=== PATIENT | female | born 1980 | race Caucasian/White ===

== ENCOUNTER 2018-05-05 17:13 | Observation (INO) | payer BC ==
[2018-05-05 18:01] LABS: Absolute Lymphocytes (CBC) 2.1 K/uL (0.7-4.9); Absolute Monocytes 0.5 K/uL (0.1-1.3); Absolute Neutrophil 6.9 K/uL (1.8-8.0); Basophils % 0.6 % (0-1.3); Eosinophils % 1.6 % (0-4.4); Hematocrit 41.8 % (36.0-45.0); Lymphocytes % 21.9 % (15.3-44.8); MPV 8.6 fL (7.6-11.3); Monocytes % 4.8 % (3.3-12.3); RBC Red Blood Cell Count 4.37 M/uL (3.86-4.86)
[2018-05-05] MEDS ORDERED: NA CHLORIDE 0.9% 2,000 ML ONE (18:07)
[2018-05-05] MEDS ORDERED: FENTANYL CITR 100 MCG/2 ML ONE ×3 (18:07→22:34)
[2018-05-05 18:13] LABS: Protime INR 1.02
[2018-05-05 18:21] LABS: Albumin 3.8 g/dL (3.4-5.0); Bilirubin Direct 0.3 mg/dL (0-0.2); Bilirubin Total 0.5 mg/dL (0.2-1.0); Potassium 3.5 mmol/L (3.5-5.1); Protein, Total 7.5 g/dL (6.4-8.2)
[2018-05-05 18:24] LABS: Magnesium 2.3 mg/dL (1.8-2.4); NT PRO-BNP 32 pg/mL (<125); Troponin (Emerg Dept Use Only) < 0.02 ng/mL (0.0-0.045)
--- NOTE | 2018-05-05 18:36 | EKG ---
Test Date: 2018-05-05 Test Time: 17:52:58 Pricer Bagger: NOLBERTO MEASUREMENT RESULTS: Intervals: Rate: 64 NE: 174 QRSD: 74 QT: 402 QTc: 414 [place]: P: 47 NE: 174 QRS: 67 T: 41 INTERPRETIVE STATEMENTS: Normal sinus rhythm Normal ECG No previous ECG available for comparison Electronically Signed On 05-05-18 18:35:15 CARE COORDINATOR by Steven Whalen
--- NOTE | 2018-05-05 18:55 | RAD REPORT ---
EXAM DESCRIPTION: RAD - Chest Single View - 05/05/2018 6:05 pm CLINICAL HISTORY: Chest pain, abdominal pain COMPARISON: None. TECHNIQUE: AP portable chest image was obtained 1800 hours . FINDINGS: Lungs are clear. Heart and vasculature are normal. No measurable pleural effusion and no p neumothorax. No acute bony abnormality seen. No acute aortic findings suspected. IMPRESSION: No acute cardiopulmonary process.
[2018-05-05 20:32] LABS: Urine Specific Gravity >1.030 (1.005-1.030)
[2018-05-05 20:32] LABS: Urine Blood NEGATIVE (NEG); Urine Glucose NEGATIVE (NEG); Urine Protein NEGATIVE (NEG); Urine Specific Gravity >1.030 (1.005-1.030); Urine pH 5.5 (5.0-7.0)
--- NOTE | 2018-05-05 20:44 | RAD REPORT ---
EXAM DESCRIPTION: CT - Abdomen Pelvis W Contrast - 05/05/2018 8:20 pm CLINICAL HISTORY: Abdominal pain, epigastric pain COMPARISON: None. TECHNIQUE: Biphasic, helical CT imaging of the abdomen and pelvis was performed following 100 ml non -ionic IV contrast. Oral contrast was given. All CT scans are performed using dose optimization technique as appropriate and may include automated exposure control or mA/KV adjustment according to patient size. FINDINGS: No suspicious findings in the lung bases. The liver, spleen, and pancreas show no suspicious findings. Liver attenuation is borderline fatty in filtrated. Well filled gallbladder shows wall thickening/ edema. Gallstones can be occult. Biliary tr ee is mildly prominent. Duct stones can be occult. Symmetric renal function is seen with no hydronephrosis or suspicious renal mass. No pyelonephritis o r acute parenchymal process. No bladder abnormalities. No adrenal abnormalities. No dilated bowel loops or bowel wall thickening. Uterus and ovaries show no suspicious findings. A 19 millimeter right ovarian cyst is present. No free air, free fluid or inflammatory stranding. No her shane, mass or bulky lymphadenopathy. No suspicious bony findings. IMPRESSION: Well filled gallbladder shows wall thickening/edema. Gallstones can be occult on CT imag ing. Biliary tree is prominent. Duct stones can be occult. No pancreatic or duodenal mass. Correlation is needed with any acute cholecystitis findings. No acute , feed weigher or GI finding otherwise noted.
--- NOTE | 2018-05-05 20:48 | EDPHYS ---
Physician Documentation [facility] Name: Ernestina Art Age: 38 yrs Sex: Female : 1980 Arrival Date: 05/05/2018 Time: 17:13 Bed 7 Private MD: out of town, doctor ED Physician Chele Dominguez HPI: 05/05 18:34 This 38 yrs old Female presents to ER via Ambulatory with complaints of snw Abdominal Pain. 18:34 The patient presents with abdominal pain. Onset: The symptoms/episode began/occurred 3 snw week(s) ago, and became worse today. The symptoms radiate to chest through to back. Associated signs and symptoms: Pertinent positives: nausea. The symptoms are described as stabbing. Modifying factors: The symptoms are alleviated by nothing, the symptoms are aggravated by food. Severity of pain: At its worst the pain was moderate severe. The patient has experienced a previous episode. The patient has not recently seen a physician. gastric sleeve in [facility] in October. 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 - Ebola Screening: : No symptoms or risks identified at this time. - Social history:: Smoking status: Patient/guardian denies using tobacco. ROS: 18:34 Constitutional: Negative for fever, chills, and weight loss, Eyes: Negative for injury, snw pain, redness, and discharge, ENT: Negative for injury, pain, and discharge, Neck: Negative for injury, pain, and swelling, Cardiovascular: Negative for chest pain, palpitations, and edema, Respiratory: Negative for shortness of breath, cough, wheezing, and pleuritic chest pain, Back: Negative for injury and pain, : Negative for injury, bleeding, discharge, and swelling, MS/Extremity: Negative for injury and deformity, Skin: Negative for injury, rash, and discoloration, Neuro: Negative for headache, weakness, numbness, tingling, and seizure. 18:34 Abdomen/GI: Positive for abdominal pain, nausea. Exam: 18:33 Constitutional: This is a well developed, well nourished patient who is awake, alert, snw and in no acute distress. Head/Face: Normocephalic, atraumatic. Eyes: Pupils equal round and reactive to light, extra-ocular motions intact. Lids and lashes normal. Conjunctiva and sclera are non-icteric and not injected. Cornea within normal limits. Periorbital areas with no swelling, redness, or edema. ENT: Nares patent. No nasal discharge, no septal abnormalities noted. Tympanic membranes are normal and external auditory canals are clear. Oropharynx with no redness, swelling, or masses, exudates, or evidence of obstruction, uvula midline. Mucous membranes moist. Neck: Trachea midline, no thyromegaly or masses palpated, and no cervical lymphadenopathy. Supple, full range of motion without nuchal rigidity, or vertebral point tenderness. No Meningismus. Chest/axilla: Normal chest wall appearance and motion. Nontender with no deformity. No lesions are appreciated. 18:33 Respiratory: Lungs have equal breath sounds bilaterally, clear to auscultation and percussion. No rales, rhonchi or wheezes noted. No increased work of breathing, no retractions or nasal flaring. Abdomen/GI: Soft, mildly tender (upper quads), with normal bowel sounds. No distension or tympany. No guarding or rebound. Back: No spinal tenderness. No costovertebral tenderness. Full range of motion. Skin: Warm, dry with normal turgor. Normal color with no rashes, no lesions, and no evidence of cellulitis. MS/ Extremity: Pulses equal, no cyanosis. Neurovascular intact. Full, normal range of motion. Neuro: Awake and alert, GCS 15, oriented to person, place, time, and situation. Cranial nerves II-XII grossly intact. Motor strength 5/5 in all extremities. Sensory grossly intact. Cerebellar exam normal. Normal gait. 18:33 Cardiovascular: Rate: normal, Rhythm: regular, Pulses: no pulse deficits are appreciated, Heart sounds: normal, HTN with pain, mildly splinted respirations. Vital Signs: 17:27 BP 151 / 93; Pulse 76; Resp 20 S; Temp 98.2(TE); Pulse Ox 100% on R/A; Weight 71.21 kg aa5 (R); Height 5 ft. 2 in. (157.48 cm) (R); Pain 10/10; 18:49 BP 123 / 77; Pulse 51; Resp 16; Pulse Ox 100% ; bp 20:34 BP 125 / 71; Pulse 72; Resp 14; Pulse Ox 98% on R/A; Pain 2/10; ed1 21:44 BP 109 / 81; Pulse 64; Resp 17; Pulse Ox 99% on R/A; Pain 2/10; ed1 22:26 BP 111 / 76; Pulse 69; Resp 18; Pulse Ox 98% on R/A; Pain 6/10; ed1 23:59 BP 127 / 79; Pulse 65; Resp 19; Temp 98.1(O); Pulse Ox 99% on R/A; Pain 7/10; ed1 17:27 Body Mass Index 28.72 (71.21 kg, 157.48 cm) aa5 MDM: 17:37 Patient medically screened. gordo 22:23 Data reviewed: vital signs, nurses notes. Data interpreted: Pulse oximetry: on room air.snw 05/05 17:36 Order name: Basic Metabolic Panel; Complete Time: 18:21 bp 05/05 17:36 Order name: CBC with Diff; Complete Time: 18:10 bp 05/05 17:36 Order name: Creatinine for Radiology; Complete Time: 18:26 bp 05/05 17:36 Order name: Hepatic Function; Complete Time: 18:21 bp 05/05 17:36 Order name: Lipase; Complete Time: 18:21 bp 05/05 17:41 Order name: Magnesium; Complete Time: 18:26 bp 05/05 17:41 Order name: NT PRO-BNP; Complete Time: 18:26 bp 05/05 17:41 Order name: PT-INR; Complete Time: 18:20 bp 05/05 17:41 Order name: Troponin (emerg Dept Use Only); Complete Time: 18:26 bp 05/05 20:07 Order name: Urine Dipstick--Ancillary (enter results); Complete Time: 20:41 ed1 05/05 20:08 Order name: Urine --Ancillary (enter results); Complete Time: 20:41 ed1 05/05 23:21 Order name: CBC with Automated Diff EDMS 05/05 23:21 Order name: CBC with Automated Diff EDMS 05/05 23:21 Order name: Comprehensive Metabolic Panel EDMS 05/05 17:36 Order name: IV Saline Lock; Complete Time: 17:42 bp 05/05 17:36 Order name: Labs collected and sent; Complete Time: 17:42 bp 05/05 17:41 Order name: XRAY Chest (1 view); Complete Time: 19:03 bp 05/05 17:41 Order name: EKG; Complete Time: 17:42 bp 05/05 17:41 Order name: Cardiac monitoring; Complete Time: 17:42 bp 05/05 17:48 Order name: CT Abd/Pelvis - W/Contrast; Complete Time: 20:46 snw 05/05 23:20 Order name: CONS Pharmacy Consult EDPR 05/05 23:20 Order name: CONS Physician Consult EDPR 05/05 23:21 Order name: NPO [facility] 05/05 23:21 Order name: Comprehensive Metabolic Panel EDPR 05/05 17:41 Order name: EKG - Nurse/Tech; Complete Time: 17:53 bp 05/05 17:41 Order name: O2 Per Protocol; Complete Time: 17:42 bp 05/05 17:41 Order name: O2 Sat Monitoring; Complete Time: 17:42 bp 05/05 17:48 Order name: NPO; Complete Time: 17:53 snw Administered Medications: 18:00 Drug: NS 0.9% 1000 ml Route: IV; Rate: 125 ml/hr; Site: right antecubital; bp 05/06 00:07 Follow up: IV Status: Infusion continued upon admission ed1 05/05 18:00 Drug: fentaNYL (PF) 25 mcg Route: IVP; Site: right antecubital; bp 18:48 Follow up: Response: Pain is decreased bp 18:00 Drug: NS 0.9% 1000 ml Route: IV; Rate: 1 bolus; Site: right antecubital; bp 20:36 Follow up: IV Status: Completed infusion; IV Intake: 1000ml ed1 18:48 Drug: fentaNYL (PF) 25 mcg Route: IVP; Site: right antecubital; bp 20:35 Follow up: Response: No adverse reaction; Pain is decreased ed1 22:27 Drug: fentaNYL (PF) 25 mcg Route: IVP; Site: right antecubital; ed1 23:00 Follow up: Response: No adverse reaction; Pain is unchanged, physician notified ed1 22:46 Drug: Zosyn 3.375 grams Route: IVPB; Infused Over: 60 mins; Site: right antecubital; ed1 23:46 Follow up: Response: No adverse reaction; IV Status: Completed infusion ed1 Point of Care Testing: Urine : 20:05 hCG Reading: Negative; Control Reading: Positive; ed1 Disposition: 05/05/18 22:34 Hospitalization ordered by Ratna Baig for Observation. Preliminary diagnosis are Cholelithiasis, Cholecystitis. - Bed requested for Telemetry/MedSurg (observation). - Status is Observation. ed1 - Condition is Stable. - Problem is new. - Symptoms are unchanged. UTI on Admission? No Signatures: Dispatcher [employer] EDMS Chele Dominguez MD MD cha Therrien, Shelly, RECREATION FACILITY ATTENDANT-C RECREATION FACILITY ATTENDANT-Csnw Esmer Castaneda, RN RN aa5 Shalonda Wilkes RN RN ed1 Elsy Moreland RN RN Jacques Upton RN RN bp Corrections: (The following items were deleted from the chart) 21:01 20:48 05/05/2018 20:48 Discharged to Home. Impression: Upper abdominal pain, snw unspecified; Cholelithiasis. Condition is Stable. Forms are Medication Reconciliation Form, Thank You Letter, Antibiotic Education, Prescription Opioid Use. Follow up: Private Physician; When: Tomorrow; Reason: Recheck today's complaints, Continuance of care, Re-evaluation by your physician. Follow up: Emergency Department; When: As needed; Reason: Worsening of condition. Follow up: Steve Leach; When: 1 - 2 days; Reason: If symptoms return, Recheck today's complaints, Continuance of care. snw 23:35 22:34 Hospitalization Ordered by Ratna Baig MD for Observation. Preliminary cg diagnosis is Cholelithiasis; Cholecystitis. Bed requested for Telemetry/MedSurg (observation). Status is Observation. Condition is Stable. Problem is new. Symptoms are unchanged. UTI on Admission? No. snw 05/06 00:23 05/05 23:35 05/05/2018 22:34 Hospitalization Ordered by Ratna Baig MD for ed1 Observation. Preliminary diagnosis is Cholelithiasis; Cholecystitis. Bed requested for Telemetry/MedSurg (observation). Status is Observation. Condition is Stable. Problem is new. Symptoms are unchanged. UTI on Admission? No. cg
--- NOTE | 2018-05-05 20:48 | ER ---
Nurse's Notes [facility] Name: Ernestina Art Age: 38 yrs Sex: Female : 1980 Arrival Date: 05/05/2018 Time: 17:13 Bed 7 Private MD: out of town, doctor Diagnosis: Cholelithiasis;Cholecystitis Presentation: 05/05 17:23 Presenting complaint: Patient states: "my whole stomach hurts, I got a gallbladder aa5 ultrasound done today at [facility]". Pt reports abd pain x 2 weeks ago that is episodic. 17:23 Transition of care: patient was not received from another setting of care. Onset of aa5 symptoms was April 2018. Risk Assessment: Do you want to hurt yourself or someone else? Patient reports no desire to harm self or others. Initial Sepsis Screen: Does the patient meet any 2 criteria? No. Patient's initial sepsis screen is negative. Does the patient have a suspected source of infection? No. Patient's initial sepsis screen is negative. Care prior to arrival: None. 17:23 Method Of Arrival: Ambulatory aa5 17:23 Acuity: CHLOE 3 aa5 Triage Assessment: 17:30 General: Appears in no apparent distress. uncomfortable, obese, Behavior is bp cooperative, appropriate for age, anxious. Pain: Complains of pain in abdomen diffusely. GI: Bowel sounds present X 4 quads. Abd is soft X 4 quads. 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 - Ebola Screening: : No symptoms or risks identified at this time. - Social history:: Smoking status: Patient/guardian denies using tobacco. Screenin:30 Abuse screen: Denies threats or abuse. Denies injuries from another. Nutritional bp screening: No deficits noted. Tuberculosis screening: No symptoms or risk factors identified. Fall Risk None identified. Assessment: 17:30 General: Appears in no apparent distress. uncomfortable, Behavior is cooperative, bp appropriate for age, anxious. Pain: Complains of pain in abdomen diffusely. Neuro: Level of Consciousness is awake, alert, obeys commands, Oriented to person, place, time, situation, Appropriate for age. Cardiovascular: No deficits noted. Respiratory: Airway is patent Respiratory effort is even, unlabored, Respiratory pattern is regular, symmetrical. GI: Reports lower abdominal pain, upper abdominal pain. : No signs and/or symptoms were reported regarding the genitourinary system. EENT: No deficits noted. Derm: No deficits noted. Musculoskeletal: Circulation, motion, and sensation intact. Range of motion: intact in all extremities. 18:30 Reassessment: PT COMPLETED PO CONTRAST, CT NOTIFIED. bp 20:05 Reassessment: Patient appears in no apparent distress at this time. Patient and/or ed1 family updated on plan of care and expected duration. Pain level reassessed. Patient is alert, oriented x 3, equal unlabored respirations, skin warm/dry/pink. Patient states symptoms have not improved. 20:34 Reassessment: Patient appears in no apparent distress at this time. Patient and/or ed1 family updated on plan of care and expected duration. Pain level reassessed. Patient is alert, oriented x 3, equal unlabored respirations, skin warm/dry/pink. Patient states symptoms have improved. 21:02 Reassessment: Notified by STEPHANIA Car that patient does not want to be discharged at ed1 this time. Pt to remain in ER until evaluated by Dr. Barba for possible admission. 21:44 Reassessment: Patient appears in no apparent distress at this time. Patient and/or ed1 family updated on plan of care and expected duration. Pain level reassessed. Patient is alert, oriented x 3, equal unlabored respirations, skin warm/dry/pink. Pt awaiting Dr. Barba to evaluate for possible admission. 22:26 Reassessment: Patient and/or family updated on plan of care and expected duration. Pain ed1 level reassessed. Patient is alert, oriented x 3, equal unlabored respirations, skin warm/dry/pink. Pt reports pain returning, requesting pain medication. Vital Signs: 17:27 BP 151 / 93; Pulse 76; Resp 20 S; Temp 98.2(TE); Pulse Ox 100% on R/A; Weight 71.21 kg aa5 (R); Height 5 ft. 2 in. (157.48 cm) (R); Pain 10/10; 18:49 BP 123 / 77; Pulse 51; Resp 16; Pulse Ox 100% ; bp 20:34 BP 125 / 71; Pulse 72; Resp 14; Pulse Ox 98% on R/A; Pain 2/10; ed1 21:44 BP 109 / 81; Pulse 64; Resp 17; Pulse Ox 99% on R/A; Pain 2/10; ed1 22:26 BP 111 / 76; Pulse 69; Resp 18; Pulse Ox 98% on R/A; Pain 6/10; ed1 23:59 BP 127 / 79; Pulse 65; Resp 19; Temp 98.1(O); Pulse Ox 99% on R/A; Pain 7/10; ed1 17:27 Body Mass Index 28.72 (71.21 kg, 157.48 cm) aa5 ED Course: 17:13 Patient arrived in ED. dl4 17:14 out of town, doctor is Private Physician. dl4 17:25 Arm band placed on Patient placed in an exam room, on a stretcher. aa5 17:26 Triage completed. aa5 17:30 Jacques Upton, RN is Primary Nurse. bp 17:30 Patient has correct armband on for positive identification. Placed in gown. Bed in low bp position. Call light in reach. Side rails up X2. Adult w/ patient. 17:31 Joceline Mcghee F[facility]-C [facility] snw 17:31 Chele Dominguez MD is Attending Physician. snw 17:57 Oral contrast given. vm2 17:59 Initial lab(s) drawn, by id, sent to lab. Inserted saline lock: 22 gauge in right pc1 antecubital area, using aseptic technique. 18:06 XRAY Chest (1 view) In Process Unspecified. EDMS 18:06 EKG done, by fingerprint technician. reviewed by Joceline QUINONES. sm3 19:[address] Scan. ed1 19:04 Primary Nurse role handed off by Jacques Upton, MARYANN ed1 19:04 Shalonda Wilkes, MARYANN is Primary Nurse. ed1 19:44 Radiology exam delayed due to test not completed at this time. vm2 20:05 Assisted to bathroom. ed1 20:20 CT Abd/Pelvis - W/Contrast In Process Unspecified. EDMS 20:21 CT completed. Patient tolerated procedure well. Patient moved back from CT. vm2 20:35 Awaiting radiology results. ed1 20:47 Steve Leach MD is Referral Physician. snw 22:33 Ratna Baig MD is Hospitalizing Provider. snw 23:58 No provider procedures requiring assistance completed. Patient admitted, IV remains in ed1 place. intact, No redness/swelling at site. Administered Medications: 18:00 Drug: NS 0.9% 1000 ml Route: IV; Rate: 125 ml/hr; Site: right antecubital; bp 05/06 00:07 Follow up: IV Status: Infusion continued upon admission ed1 05/05 18:00 Drug: fentaNYL (PF) 25 mcg Route: IVP; Site: right antecubital; bp 18:48 Follow up: Response: Pain is decreased bp 18:00 Drug: NS 0.9% 1000 ml Route: IV; Rate: 1 bolus; Site: right antecubital; bp 20:36 Follow up: IV Status: Completed infusion; IV Intake: 1000ml ed1 18:48 Drug: fentaNYL (PF) 25 mcg Route: IVP; Site: right antecubital; bp 20:35 Follow up: Response: No adverse reaction; Pain is decreased ed1 22:27 Drug: fentaNYL (PF) 25 mcg Route: IVP; Site: right antecubital; ed1 23:00 Follow up: Response: No adverse reaction; Pain is unchanged, physician notified ed1 22:46 Drug: Zosyn 3.375 grams Route: IVPB; Infused Over: 60 mins; Site: right antecubital; ed1 23:46 Follow up: Response: No adverse reaction; IV Status: Completed infusion ed1 Point of Care Testing: Urine : 20:05 hCG Reading: Negative; Control Reading: Positive; ed1 Intake: 20:36 IV: 1000ml; Total: 1000ml. ed1 Outcome: 20:48 Discharge ordered by . snw 22:34 Decision to Hospitalize by Provider. snw 05/06 00:05 Admitted to Tele accompanied by tech, via wheelchair, room 425, with chart, Report ed1 called to MARYANN Pham Condition: stable Discharge instructions given to patient, Instructed on the need for admit, Demonstrated understanding of instructions. 00:23 Patient left the ED. ed1 Signatures: Dispatcher [employer] EDMS Joceline Mcghee, TABLE GAMES SUPERVISOR-C TABLE GAMES SUPERVISOR-Csnw Esmer Castaneda, RN RN aa5 Shalonda Wilkes RN RN ed1 Madalyn Williamson 2 Jacques Upton, RN RN bp Jia Cervantes sm3 Coy Cuenca dl4 Ashu Terrell pc1
[2018-05-05] MEDS ORDERED: PIPER/TAZO/NS 3.375gm 3.375 GM/100 ML BAG ONE (22:48)
[2018-05-05] MEDS ORDERED: ACETAMINOPHEN 500 MG TAB PO PRN (23:16)
[2018-05-05] MEDS ORDERED: NA CHLORIDE 0.9% 1,000 ML IV SCH (23:45)
[2018-05-05] MEDS ORDERED: Levofloxacin500mg IV 500 MG/100 ML BAG IV SCH (23:45)
[2018-05-05] MEDS: MORPHINE 2 MG/ML SYR IV PRN (23:58)
[2018-05-06] MEDS ORDERED: MORPHINE 2 MG/ML SYR ONE (00:06)
[2018-05-06] MEDS: METRONIDAZOLE 500mg IVPB 500 MG/100 ML BAG IV SCH ×3 (01:35→11:23)
[2018-05-06 06:13] LABS: Absolute Lymphocytes (CBC) 1.8 K/uL (0.7-4.9); Absolute Monocytes 0.4 K/uL (0.1-1.3); Absolute Neutrophil 4.6 K/uL (1.8-8.0); Basophils % 0.4 % (0-1.3); Eosinophils % 1.7 % (0-4.4); Hematocrit 34.5 % (36.0-45.0); Lymphocytes % 25.7 % (15.3-44.8); MPV 8.8 fL (7.6-11.3); Monocytes % 6.2 % (3.3-12.3); RBC Red Blood Cell Count 3.61 M/uL (3.86-4.86)
[2018-05-06 06:31] LABS: ALT/SGPT 152 U/L (12-78); AST/SGOT 218 U/L (15-37); Albumin 2.8 g/dL (3.4-5.0); Alkaline Phosphatase 133 U/L (45-117); BUN Blood Urea Nitrogen 10 mg/dL (7-18); Bicarbonate 27 mmol/L (21-32); Bilirubin Total 1.2 mg/dL (0.2-1.0); Glucose Level 82 mg/dL (74-106); Potassium 4.1 mmol/L (3.5-5.1); Protein, Total 5.7 g/dL (6.4-8.2); Sodium Level 141 mmol/L (136-145)
[2018-05-06] MEDS ORDERED: ONDANSETRON 4 MG/2 ML VIAL IV PRN (09:39)
--- NOTE | 2018-05-06 09:46 | P.HP ---
Certification for Inpatient Patient admitted to: Inpatient With expected LOS: >2 Midnights Patient will require the following post-hospital care: None Practitioner: I am a practitioner with admitting privileges, knowledge of patient current condition, hospital course, and medical plan of care. Services: Services provided to patient in accordance with Admission requirements found in Title 42 Section 412.3 of the Code of Federal Regulations Patient History Date of Service: 05/06/18 Reason for admission: Abdominal pain History of Present Illness: patient is a 30-year-old female who came into the hospital with abdominal discomfort. Patient has been having some pain for the last few weeks. Pain also in the right shoulder. Patient's pain started after she had something to eat. She had some fatty food and a couple of hours later she had extreme pain. She had an ultrasound earlier in the day and she states that they were really not able to see her gallbladder well. The auto repair technician told them that her gallbladder may not be working. Because she knew this information and she started having the severe pain she decided to come into the hospital for further evaluation. In the emergency room decision was made to admit the patient from CT scan findings. Patient will need surgery. Consult General surgery and inpatient hospitalization Patient has recently had a gastric sleeve in October of 2017 and has lost almost 70 lbs. No evidence of any abnormality with her gastric sleeve. Patient will be admitted for further evaluation. Allergies hydrocodone Allergy (Verified 05/06/18 00:42) Nausea/Vomiting Home Medications: Mag Carb/Al Hydrox/Alginic AC [Gaviscon Extra Strength Liquid] 10 ml PO TID Omeprazole 20 mg PO BID 05/06/18 - Past Medical/Surgical History Has patient received pneumonia vaccine in the past: No Diabetic: No -: HTN -: Breast Reduction -: Gastric Sleeve -: C Section x 2 - Family History Mother Medical History: Hypertension Father Medical History: Hypertension, Diabetes Brother Medical History: Hypertension - Social History Smoking Status: Current every day smoker Alcohol use: Yes CD- Drugs: No Caffeine use: Yes Place of Residence: Home Review of Systems 10-point ROS is otherwise unremarkable Physical Examination - Vital Signs Temperature: 98 F Blood Pressure: 115/75 Pulse: 65 Respirations: 20 Pulse Ox (%): 99 - Physical Exam General: Alert, In no apparent distress, Oriented x3 HEENT: Atraumatic, PERRLA, Mucous membr. moist/pink, EOMI, Sclerae nonicteric Neck: Supple, 2+ carotid pulse no bruit, No LAD, Without JVD or thyroid abnormality Respiratory: Clear to auscultation bilaterally, Normal air movement Cardiovascular: Regular rate/rhythm, Normal S1 S2 Gastrointestinal: Normal bowel sounds, Soft and benign, Non-distended, No tenderness Musculoskeletal: No clubbing, No swelling, No tenderness Integumentary: No rashes Neurological: Normal gait, Normal speech, Normal strength at 5/5 x4 extr, Normal tone, Sensation intact, Cranial nerves 3-12 intact, Normal affect Lymphatics: No axilla or inguinal lymphadenopathy - Studies Laboratory Data (last 24 hrs) 05/05/18 17:54: PT 12.0, INR 1.02 05/05/18 17:54: Magnesium 2.3 05/05/18 17:40: Creatinine 0.84 05/05/18 17:40: WBC 9.7, Hgb 14.0, Hct 41.8, Plt Count 298 05/05/18 17:40: Sodium 141, Potassium 3.5, BUN 15, Creatinine 0.86, Glucose 83, Total Bilirubin 0.5, AST 37, ALT 32, Alkaline Phosphatase 152 H, Lipase 133 Assessment & Plan - Problems (Diagnosis) (1) Cholecystitis, acute with cholelithiasis Current Visit: Yes Status: Acute - Plan Plan: 1. IV fluids and IV antibiotics 2. General surgery consultation 3. may need outpatient GI consultation 4. Pain control 5. NPO for possible laparoscopic cholecystectomy 6. GI and DVT prophylaxis Discharge Plan: Home Plan to discharge in: 24 Hours - Advance Directives Does patient have a Living Will: No Does patient have a Durable POA for Healthcare: No - Code Status/Comfort Care Code Status Assessed: Yes Code Status: Full Code Comfort Measures: Palliative Care Critical Care: No Time Spent Managing PTS Care (In Minutes): 50
--- NOTE | 2018-05-06 10:41 | RAD REPORT ---
EXAM DESCRIPTION: MRI - Cholangiogram - 05/06/2018 10:14 am CLINICAL HISTORY: Abnormal liver function COMPARISON: CT study May 05 TECHNIQUE: Axial and coronal heavily T2 weighted sequences were obtained. Coronal T2 HASTE fat satur ation static and coronal multiplane reconstruction imaging generated and reviewed. Horizontal and chela tical axis rotational views obtained using maximum intensity projection (MIP) protocol. FINDINGS: No common duct stones identified. No stricture, mass or filling defect within the biliary tree. Common bile duct is 7 mm in maximum diameter, upper normal. No stone or filling defect within t he central biliary tree radicles. No gallstones confirmed. Gallbladder wall continues to show thickening/edema. IMPRESSION: Upper normal diameter biliary tree at 7 mm. No duct stone, stricture or mass. Gallbladder wall thickening/ edema without a gallstone identifiable on MRCP.
[2018-05-06 11:17] LABS: Urine Appearance CLEAR; Urine Blood NEGATIVE (NEG); Urine Color DK YELLOW; Urine Glucose NEGATIVE (NEG); Urine Protein NEGATIVE (NEG); Urine Specific Gravity >=1.030 (1.005-1.030)
[2018-05-06] MEDS: MORPHINE 2 MG/ML SYR IV PRN (11:24)
[2018-05-06 11:45] LABS: Urine Bilirubin NEGATIVE (NEG); Urine RBC <5 /HPF (NONE SEEN)
[2018-05-06 11:46] LABS: Urine Bacteria <20 /HPF (<20); Urine Culture Reflex Order NOT NEEDED
--- NOTE | 2018-05-06 12:27 | CON ---
Date of Consultation: 05/06/2018 Brief History Of Present Illness: The patient is a 38-year-old female, who has history of multiple episodes of back epigastric chest and right upper quadrant abdominal pain beginning about a year ago. She states that she has had several episodes of the same type of pain over the course of t he past year, at least 2-3 episodes. However, her last episode began yesterday after eating some chi li cheese fries. She noted that the pain was in the epigastric with radiation through to the back lo cation similar to prior episodes, but increased intensity and significant pain. She has had some mil d nausea. No vomiting. No change in bowel or bladder habits. She had a gastric sleeve 6 months ago and has had over 50-pound weight loss in that same period of time. [facility]. She was not placed on any bile acid sequestrant or other medications during that operative or postoperative period by her report. Past Medical History: Significant for hypertension in the past, which she states has now gone, and m orbid obesity. Past Surgical History: Sleeve gastrectomy, breast augmentation, and . The breast augmentat ion was for reduction mammoplasty. Allergies: NORCO. Home Medications: None. Social History: She smokes half pack per day for 15 years. Alcohol, she drinks a glass of wine per day. Recreational drug use, marijuana intermittently and occasionally. 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 Review of Systems: A 10-point review of systems other than HPI, denies. Physical Examination: Vital Signs: At the time of examination, her BMI is 28.5. Her vital signs were a blood pressure of 115/75, pulse 65, respiratory rate 20, temperature 98.0. General: She is awake, alert, oriented. Psychiatric: She is appropriate and conversive. HEENT: Normocephalic sclerae icteric. Mucous membranes moist. Oropharynx is clear. There was no s ubungual jaundice. Neck: Supple. No JVD. Chest: Normal expansion and excursion. Cardiovascular: Regular rate and rhythm. Pulmonary: Clear to auscultation bilaterally. Abdomen: Soft with positive epigastric, positive right upper quadrant tenderness to palpation. Nega tive Hanks sign, but she does have tenderness to deep palpation in the epigastrium in the right uppe r quadrant. She has voluntary guarding. No rebound. She has well-healed surgical scars on the abdo men from laparoscopic surgery. The remainder of abdominal exam is essentially benign. Extremities: No clubbing, cyanosis, or edema. Skin: Warm and dry. Laboratory Data: Reveals white blood count 7.0, hemoglobin 11.7, hematocrit 34.5, platelet count is 236. Her PT is 12.0, INR 1.02. Sodium 141, potassium 4.1, chloride 108, carbon dioxide 27, BUN 10, creatinine 0.7, glucose is 82, calcium is 8.0, total bilirubin is 1.2, up from 0.5 on admission. AST is 218 up from 37 on admission. ALT is 152, up from 32 on admission. Alkaline phosphatase is 133, down from 152 on admission. Her rapid troponin less than 0.02. PROBNP is 32, lipase is 133 on admis terry. Her UA was essentially negative. Urine test was also negative. She had a CT scan p erformed of abdomen and pelvis, which officially read as well filled gallbladder shows wall thickenin g/edema. Gallstones could be occult on CT imaging. Biliary tree is prominent. Duct stone can be oc cult. No pancreatic or duodenal mass. Correlation is needed with any acute cholecystitis findings. 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 Assessment And Plan: This is a 38-year-old female who presents with signs and symptoms of acute chol ecystitis with cholelithiasis. 1.IV fluid hydration. 2.Magnetic resonance cholangiopancreatography to rule out choledocholithiasis with elevation of LFTs and prominence of the biliary tree on CT. I feel that it would be beneficial to see if the patient has evidence of biliary tract stone prior to any surgical intervention. 3.GI consult. 4.Continue IV fluid hydration. 5.Recommend discontinue Levaquin, Flagyl, changed to Zosyn for antibiotic coverage. 6.Continue medical management per primary medical team, Dr. Baig. Thank you for this interesting consult. I will follow along with you. GEOVANNA/ARMANDO Voice ID: [id number] Report ID: [id number]
== END 2018-05-06 14:59 | disposition short-term general hospital (02) ==
LOC: ER 17:13 → ERHOLD 23:30 → 4TH 05-06 00:12
PROVIDERS: ADMIT Hospitalist; ATTEND Hospitalist
DX: K80.00 Calculus of gallbladder with acute cholecystitis without obstruction (principal); I10 Essential (primary) hypertension; F17.210 Nicotine dependence, cigarettes, uncomplicated; Z98.84 Bariatric surgery status
CPT/HCPCS: 36415; 71045; 74177; 74181; 80048; 80053; 80076; 81001; 81003; 81025; 83690; 83735; 83880; 84484; 85025; 85610; 93005; 96361; 96365; 96375; 99285; G0378; J2270; J2543; J3010; J7030; Q9967

== ENCOUNTER → 2023-04-25 | Emergency (ER) | payer BC, OTHER ==
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
[2023-04-26 01:22] VITALS: BP 141/94; TEMP 98; O2SAT 99
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
== END ==
LOC: ER 22:39
DX: S00.81XA Abrasion of other part of head, initial encounter (principal); V27.49XA Other motorcycle driver injured in collision with fixed or stationary object in traffic accident, initial encounter; I10 Essential (primary) hypertension; Z72.0 Tobacco use
CPT/HCPCS: 70450; 72125; 71260; 74177; 99283; Q9967